=== PATIENT | male | born 1980 | race Two or more races ===

== ENCOUNTER 2021-01-13 18:47 | Emergency (ER) | payer OTHER ==
[~2021-01-13] VITALS: Ht 172.7 cm; Wt 101.2 kg
[~2021-01-13 18:47] MED LIST: KETO10TA2 PO; TAMS0.4C PO
== END 2021-01-13 21:08 | disposition home or self-care (01) ==
LOC: ER 18:47
DX: R10.31 Right lower quadrant pain (principal)